=== PATIENT | female | born 1990 | race African-American/Black ===

== ENCOUNTER 2021-01-02 22:42 | Emergency (ER) | payer SELFPAY ==
--- NOTE | 2021-01-02 22:43 | NUR ---
Patient was called to be traiged but states " I change my mind, I don't want to be seen anymore."
--- NOTE | 2021-01-02 22:50 | NUR ---
Patient was not triaged or seen by [facility].
== END 2021-01-02 23:06 | disposition left against medical advice (07) ==
LOC: ER 22:44
DX: Z53.21 Procedure and treatment not carried out due to patient leaving prior to being seen by health care provider (principal)